=== PATIENT | female | born 1965 | race Caucasian/White ===

== ENCOUNTER → 2018-04-13 10:21 | Outpatient (CLI) | payer OTHER, SELFPAY ==
--- NOTE | 2018-04-13 | DI.RAD.S_ITS ---
PROCEDURE: XR HIP W PEL IF DONE LT 2V INDICATIONS: LEFT HIP PAIN TECHNIQUE: AP pelvis with lateral view(s) of the left hip(s). COMPARISON: None. FINDINGS: Bones: No fractures or dislocations. Pelvic ring appears intact. No suspicious bony lesions. Subcentimeter nonspecific sclerotic focus projecting in the left femoral head. Mild bilateral hip degeneration. Degenerative changes and sclerosis and spurring also present at pubic symphysis. Soft tissues: The visualized bowel gas pattern is normal. No suspicious soft tissue calcifications. IMPRESSION: Mild bilateral hip degeneration. Subcentimeter sclerotic focus projecting at the left femoral head, potentially a bone island, although cannot exclude superimposition of a small loose body versus other statistically less likely neoplastic/metastatic etiologies. Further assessment with MRI could be performed as clinically warranted. Marked degenerative changes at the pubic symphysis. Dictated by: Francisco Gilman M.D. on 04/13/2018 at 13:09 Approved by: Francisco Gilman M.D. on 04/13/2018 at 13:12
== END ==
PROVIDERS: PCP Family Medicine; Visit Provider Family Medicine
DX: M25.552 Pain in left hip (principal); M16.0 Bilateral primary osteoarthritis of hip
CPT/HCPCS: 73502